=== PATIENT | female | born 1995 | race Caucasian/White ===

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

== ENCOUNTER 2017-05-16 22:12 | Emergency (ER) | payer SELFPAY ==
[~2017-05-16] VITALS: Ht 157.5 cm; Wt 54.4 kg
[2017-05-16 22:20] VITALS: Ht 157.5 cm; Wt 54.4 kg
[2017-05-16 23:32] VITALS: BP 119/71
== END 2017-05-16 23:32 | disposition home or self-care (01) ==
LOC: ED 22:12
DX: F10.129 Alcohol abuse with intoxication, unspecified (principal); R41.82 Altered mental status, unspecified; Z86.79 Personal history of other diseases of the circulatory system

== ENCOUNTER 2018-01-25 15:54 | Emergency (ER) | payer MEDICAID ==
[~2018-01-25] VITALS: Ht 157.5 cm; Wt 57.2 kg
[2018-01-25 16:00] VITALS: Ht 157.5 cm; Wt 57.2 kg
[2018-01-25 16:37] LABS: CALCIUM 8.8 mg/dL (8.5-10.1); CARBON DIOXIDE 26.1 mmol/L (21-32); CHLORIDE SERUM 102 mmol/L (98-107); CREATININE SERUM 0.7 mg/dL (0.6-1.0); GFR1 > 60 mL/min; GLUCOSE SERUM 94 mg/dL (74-106); POTASSIUM SERUM 3.9 mmol/L (3.5-5.1); SODIUM SERUM 137 mmol/L (136-145)
[2018-01-25 16:40] LABS: ALBUMIN 4.2 g/dL (3.4-5.0); ALKALINE PHOSPHATASE 69 U/L (46-116); ALT/SGPT 17 U/L (14-59); AST/SGOT 16 U/L (15-37); TOTAL PROTEIN, SERUM 8.1 g/dL (6.4-8.2)
[2018-01-25 16:47] LABS: PLATELET COUNT 225 x10^3mcL (130-400); RED CELL DISTRIBUTION WIDTH 11.6 % (11.5-14.5)
[2018-01-25 16:48] LABS: BASOPHIL % 0.3 % (0-2)
[2018-01-25 20:40] VITALS: BP 117/65
== END 2018-01-25 20:40 | disposition home or self-care (01) ==
LOC: ED 15:54
PROVIDERS: Emergency Medicine
DX: N12 Tubulo-interstitial nephritis, not specified as acute or chronic (principal); Z86.2 Personal history of diseases of the blood and blood-forming organs and certain disorders involving the immune mechanism
CPT/HCPCS: J0696; J7030

== ENCOUNTER 2018-06-05 21:39 | Emergency (ER) | payer SELFPAY ==
[2018-06-05 22:11] VITALS: Ht 157.5 cm
[2018-06-05 23:50] VITALS: BP 111/60
== END 2018-06-05 23:50 | disposition home or self-care (01) ==
LOC: ED 21:39
DX: L50.9 Urticaria, unspecified (principal); R42 Dizziness and giddiness; Z86.2 Personal history of diseases of the blood and blood-forming organs and certain disorders involving the immune mechanism
CPT/HCPCS: J1200; J7512